=== PATIENT | female | born 1990 | race Caucasian/White ===

== ENCOUNTER 2017-01-22 15:38 | Inpatient (IN) | payer OTHER ==
[~2017-01-22] VITALS: Ht 162.6 cm; Wt 99.3 kg
[~2017-01-22 15:38] MED LIST: Ibuprofen PO; PREN1TAB80 PO
[2017-01-22] MEDS ORDERED: Lactated Ringer's 1,000 ML IV PRN (16:04)
[2017-01-22] MEDS ORDERED: Hemorrhage Kit, Post Partum XX ONE ×2 (16:05→22:05)
[2017-01-22] MEDS ORDERED: Carboprost 250 mCg/mL Inj IM PRN ×2 (16:05→22:05)
[2017-01-22] MEDS ORDERED: fentaNYL-PF 50 mCg/mL 2 mL Inj IVPUSH PRN (16:05)
[2017-01-22] MEDS ORDERED: Oxytocin 10 Unit/mL Inj IM PRN ×2 (16:05→22:05)
[2017-01-22] MEDS ORDERED: Sodium Chloride LOK Flush 10 mL Syringe IVFLUSH PRN (16:05)
[2017-01-22] MEDS ORDERED: Oxytocin 30 Units/500 mL LR 30 UNITS in IV Premix 1 EACH IV PRN ×2 (16:05→22:05)
[2017-01-22] MEDS ORDERED: Methylergonovine 0.2 mg/mL Inj IM PRN ×2 (16:05→22:05)
[2017-01-22 16:28] LABS: Mean Corpuscular Hemoglobin 27.8 pg (27.0-35.0); Mean Corpuscular Volume 86.8 fL (81-100)
[2017-01-22] MEDS ORDERED: Lactated Ringer's 500 ML IV ONE (17:06)
[2017-01-22] MEDS ORDERED: Ondansetron 2 mg/mL 2 mL Inj IVPUSH PRN (17:10)
[2017-01-22] MEDS ORDERED: EPHEDrine Sulfate 50 mg/mL Inj IVPUSH PRN (17:10)
[2017-01-22] MEDS ORDERED: fentaNYL 2 mCg/mL-Bupiv 0.125% 100 ML EPIDURAL SCH (17:10)
[2017-01-22] MEDS ORDERED: Atropine 1 mg/10 mL (Code) Syringe IVPUSH PRN (17:10)
[2017-01-22] MEDS: Lactated Ringer's 1,000 ML IV SCH ×2 (17:46→20:58)
--- NOTE | 2017-01-22 17:47 | PCM.HPANE ---
Patient Data Surgeon Admitting Provider:Cristian Ren MD Attending Provider:Cristian Ren MD Primary Care Physician:Zoraida Samuel MD Other Provider: Reason for Visit Term Labor Ht/WT & BMI Body Mass Index Allergies Coded Allergies: No Known Allergies (Unverified Allergy, Unknown, 05/06/14) Diabetes History Hx Diabetes?: No Medications Active Scripts [Ibuprofen] (Motrin)800 MG TABLET No Conflict [id number] Mg PO Q6H PRN For Pain # 30 TABLET Prov:Zoraida Samuel MD 05/07/14 Reported Medications Vits W-Ca,Fe,FA(<1Mg) ( Vitamins)1 Each Tablet1 Each PO DAILY 05/06/14 History History of ENT Problems?: No Hx of Heart Problems?: No Cardiovascular History: Denies:: Congestive Heart Failure Hypertension Hx of Respiratory Problem?: No Respiratory History: Denies:: Tuberculosis Hx Neurologic Problems?: No Hx of GI Problems?: No Hx of Problems?: No HX of Peritoneal Dialysis: No Hx Musculoskeletal Problems?: No Hx Diabetes: No Hx Alcohol Use: NoHx Substance Use: No Smoking Status: Never Smoker Stop/Bang Risk Assessment Category Category 1A: Patient has history of documented sleep apnea, and HAS NOT received any narcotic, sedative or anesthesia administration during this stay. Category 1B: Patient has history of documented sleep apnea, and HAS received any narcotic , sedative or anesthesia administration during this stay Category 2: Patient has SUSPECTED Obstructive Sleep Apnea, and HAS received any narcotic , sedative or anesthesia administration during this stay. Category 3: Patient has SUSPECTED Obstructive Sleep Apnea and HAS NOT received narcotic, sedative or anesthesia administration during this stay. Category 4: Outpatient in Procedural Areas with known sleep apnea or who screen positive for High Risk via the STOP/BANG questionnaire. Exam Exam General Appearance: Alert, Oriented X3 HEENT/AIRWAY: MP 2, Neck Movement (FROM) Lungs: Clear to Auscultation, Clear to Percussion Heart: Exam Unremarkable, Regular Rate/Rhythm Meds/Labs/Diagnostics Labs Test 01/22/17 16:15 White Blood Count 12.6th/mm3 (3.8-10.1) Red Blood Count 3.95mil/mm3 (3.90-5.20) Hemoglobin 11.0g/dL (12.0-15.6) Hematocrit 34.3% (35.0-46.0) Mean Corpuscular Volume 86.8fL (81-100) Mean Corpuscular Hemoglobin 27.8pg (27.0-35.0) Mean Corpuscular Hemoglobin Concent 32.1% (32.0-37.0) Red Cell Distribution Width 12.9% (12.3-15.4) Platelet Count 180bil/L (150-400) Plan Impression Patient chart reviewed, patient interviewed and anesthestic plan with risks, benefits, and alternatives discussed, and informed consent obtained. ASA Physical Status: ASA2 Mod Systemic Disease Anesthetic Plan: Epidural Bene/Risks/Altern/Consents: Yes HP Complete Prior to Induction: Yes Gilberto Travis MD Jan 22, 2017 17:06
[2017-01-22] MEDS ORDERED: ONDA4TAB9 PO (18:01)
--- NOTE | 2017-01-22 19:37 | PCM.PNOBIP ---
Subjective Date of Service Jan 22, 2017 Delivery plan: Spontaneous Vaginal Delivery Visit History In to check on progress. Nursing staff having difficulty reliably tracking heart rate externally. Subjective No complaints. Pain Management: Epidural, Good Pain Control Labs Laboratory Tests 01/22/17 16:15: White Blood Count 12.6, Red Blood Count 3.95, Hemoglobin 11.0, Hematocrit 34.3, Mean Corpuscular Volume 86.8, Mean Corpuscular Hemoglobin 27.8, Mean Corpuscular Hemoglobin Concent 32.1, Red Cell Distribution Width 12.9, Platelet Count 180 Exam Vital Signs Vital Signs Contraction frequency in minutes: 2-4 Vital Signs: VS reviewed, stable Heart Tracings Heart Tones Baseline 130 bpm (with long periods of broken tracing) Heart Rate Accelleration: Present Heart Rate Deceleration: Absent Tocometry/IUPC Contraction frequency in minutes: MVUs: Sterile Vaginal Exam Cervical Dilation: 8 cms Cervical Effacement: 90 % Station: -3 Exam General: Alert, Oriented X3, Cooperative, No Acute Distress OB Intrapartum Assessment/Plan Assessment 1.) Active phase labor, 2.) Difficulty tracing heart rate externally Intrapartum plan: Continue expected management, AROM (clear fluid), scalp electrode placed Pain Evaluation: Adequate Pain Control Cristian Ren MD Jan 22, 2017 19:37
[2017-01-22] MEDS ORDERED: Lactated Ringer's 1,000 ML IV SCH (22:05)
[2017-01-22] MEDS ORDERED: Witch Hazel-Glycerin Pads TOPICAL PRN (22:05)
[2017-01-22] MEDS ORDERED: LANOlin HPA 7 Gm Ointment TOPICAL PRN (22:05)
[2017-01-22] MEDS ORDERED: HYDROcodone-APAP 5-325 mg Tablet PO PRN (22:05)
[2017-01-22] MEDS ORDERED: Benzocaine (Dermoplast) 20% 60 Gm Spray TOPICAL PRN (22:05)
--- NOTE | 2017-01-22 22:12 | PCM.OBVAG ---
Vaginal Delivery Date of Service Jan 22, 2017 Pre Operative Diagnosis Pre Operative Diagnosis Term gestation, labor Post Operative Diagnosis Post Operative Diagnosis Term gestation, delivered Procedure Obstetical Procedure: Normal Spontaneous Vaginal Delivery Regional Business Manager/Aeronautical Project Engineer Provider and Aeronautical Project Engineer: Cristian Ren MD Indication for Procedure Induction: Active labor, AROM, Progressed normally through labor Findings Obstetrical Findings: [place] (Male -- nuchal cord x2, reduced at the perineum) , Weight (8 lbs 12 oz), Presentation (Vertex), 1 minute (8), 5 minutes (9), Placenta (Intact/Normal), Perineal Laceration (intact) Analgesia/Medications Obstetrical Anesthesia: Epidural Procedure Details Procedure Details 26yo at 39 4/7 weeks EGA, presenting in active phase labor. Uncomplicated labor and delivery course, as noted above. Blood Loss & Administration Estimated Blood Loss: 300 Blood Admin during procedure: No Post Procedure Plan Post delivery Condition: Mom stable, Baby stable to nursery Cristian Ren MD Jan 22, 2017 22:12
[2017-01-23] MEDS ORDERED: Sodium Chloride LOK Flush 10 mL Syringe IVFLUSH SCH (00:30)
[2017-01-23 05:58] LABS: Mean Corpuscular Hemoglobin 27.6 pg (27.0-35.0); Mean Corpuscular Volume 88.2 fL (81-100)
--- NOTE | 2017-01-23 18:48 | PCM.PNOBPP ---
Subjective Date of Service Jan 23, 2017 Post : Spontaneous Vaginal Delivery Visit History PPD#1 Subjective Patient feeling well. No complaints. Lochia: Normal Pain Management: No or Minimal Pain Gastrointestinal: Good Appetite Postop Activity: Ambulating Independently Labs Laboratory Tests 01/23/17 05:25: White Blood Count 16.2, Red Blood Count 3.55, Hemoglobin 9.8, Hematocrit 31.3, Mean Corpuscular Volume 88.2, Mean Corpuscular Hemoglobin 27.6, Mean Corpuscular Hemoglobin Concent 31.3, Red Cell Distribution Width 13.0, Platelet Count 142 Exam Vital Signs Vital Signs: VS reviewed, stable Exam Abdomen: Uterus is (U-1), Fundus firm, Abdomen soft, Abdomen non-tender, Abdomen non-distended Perineum: Intact : Voiding without difficulty Extremities: No cords, No tenderness/swelling Lungs: Clear to Auscultation, Normal Air Movement Heart: Normal S1, Normal S2, No Murmurs/Rubs/Gallops General: Alert, Oriented X3, Cooperative, No Acute Distress OB Post Assessment/Plan Assessment PPD#1 -- doing well Problems: (1) Spontaneous vaginal delivery Status: Acute ICD Code: O80 (2) normal course Status: Acute ICD Code: Z39.2 (3) with 39 completed weeks gestation Status: Acute ICD Code: Z3A.39 Pain Evaluation: Adequate Pain Control Post plan: Anticipate discharge home today Cristian Ren MD Jan 23, 2017 18:48
--- NOTE | 2017-01-23 18:50 | PCM.DC.OB ---
Obstetrical Discharge Summary Date of Service Jan 23, 2017 Date of hospital admission Jan 22, 2017 at 15:58 Date of Discharge: Jan 23, 2017 Providers Admitting Physician: Cristian Ren MD Primary Care Physician: Zoraida Goldsmith MD Attending Physician: Cristian Ren MD Problems: (1) Spontaneous vaginal delivery Status: Acute ICD Code: O80 (2) normal course Status: Acute ICD Code: Z39.2 (3) with 39 completed weeks gestation Status: Acute ICD Code: Z3A.39 Brief History and Physical: 26yo , admitted in active labor at 39 4/7 weeks EGA. Hospital Course: Uneventful labor, delivery, and course. Discharged on day #1. ([Ibuprofen]) 800 MG TABLET 800 MG PO Q6H PRN PRN For Pain Prescribed by: ZORAIDA GOLDSMITH MD Ondansetron ODT (Zofran ODT) 4 Mg Tablet 4 MG PO Q4H PRN PRN For Nausea ( Reported) Last Taken: 4mg on 01/22/17 1230 Vits W-Ca,Fe,FA(<1Mg) ( Vitamins) 1 Each Tablet 1 EACH PO DAILY (Reported) Disposition Home Follow-up plan 6 weeks Discharge Diet: No restrictions Discharge Activity-General: Pelvic Rest for 6 weeks Cristian Ren MD Jan 23, 2017 18:50
--- NOTE | 2017-01-23 18:52 | PCM.DIOB ---
Obstetrical Disch Instruction Date of Service: Jan 23, 2017 Dates of Hospitalization Date of Hospital Admission Jan 22, 2017 at 15:58 Providers Admitting Physician: Cristian Ren MD Primary Care Physician: Zoraida Samuel MD Attending Physician: Cristian Ren MD Discharge Diagnosis Problems: (1) Spontaneous vaginal delivery Status: Resolved ICD Code: O80 (2) normal course Status: Resolved ICD Code: Z39.2 (3) with 39 completed weeks gestation Status: Resolved ICD Code: Z3A.39 Diet Discharge Diet: No restrictions Activity Discharge Activity-General: Pelvic Rest for 6 weeks Dressing and Incisional Care Hygiene: May shower Follow Up Plan Follow-up Provider (F9): Cristian Ren MD Follow-up appointment: Weeks (6) Call your provider for: Fever or Chills, Shortness of breath, Heavy vaginal bleeding, Epigastric pain, Excessive constipation, Vaginal discomfort, Red painful breasts Cristian Ren MD Jan 23, 2017 18:52
== END 2017-01-23 21:56 | disposition home or self-care (01) | DRG 775 ==
LOC: FBCO 15:38 → FBC 15:58
PROVIDERS: ADMIT Family Medicine; ATTEND Family Medicine
PROC: 10E0XZZ Delivery of Products of Conception, External Approach (ICD-10-PCS; principal; 2017-01-22)
PROC: 10907ZC Drainage of Amniotic Fluid, Therapeutic from Products of Conception, Via Natural or Artificial Opening (ICD-10-PCS; 2017-01-22)
DX: O69.81X0 Labor and delivery complicated by cord around neck, without compression, not applicable or unspecified (principal); Z37.0 Single live birth; Z3A.39 39 weeks gestation of pregnancy